=== PATIENT | male | born 1995 | race Caucasian/White ===

== ENCOUNTER 2017-02-23 18:55 | Emergency (ER) | payer MEDICAID, OTHER ==
[2017-02-23 19:02] VITALS: TEMP 98.6
--- NOTE | 2017-02-23 19:28 | EDPHY ---
H & P Stated Complaint: 3 days of neck pain - Personal History Current Tetanus/Diphtheria Vaccine: Yes Current Tetanus Diphtheria and Acellular Pertussis (TDAP): Yes - Medical/Surgical History Hx Asthma: No Hx Chronic Respiratory Disease: No Hx Diabetes: No Hx Cardiac Disease: No Hx Renal Disease: No Hx Cirrhosis: No Hx Alcoholism: No Hx HIV/AIDS: No Hx Splenectomy or Spleen Trauma: No Other PMH: PMH:DENIES. PSH:DENIES - Social History Smoking Status: Never smoked Time Seen by Provider: 02/23/17 19:11 HPI/ROS: CHIEF COMPLAINT: Right anterior neck pain x3 days HISTORY OF PRESENT ILLNESS: 21-year-old male history of hypothyroidism, on chronic thyroid supplementation, complaining of atraumatic right anterior neck pain, reproducible exacerbated with range of motion specifically rotational movements the left. He points to the general location of the sternocleidomastoid muscle. Pain described as feeling deep in the muscle by patient. Denies dysphagia or odynophagia. Denies URI symptoms. Denies adenopathy. No history of major minor head or neck trauma or manipulation. REVIEW OF SYSTEMS: A ten point review of systems was performed and is negative with the exception of the items mentioned in the HPI PAST MEDICAL & SURGICAL HISTORY: Hypothyroid, on supplementation SOCIAL HISTORY:Nonsmoker PHYSICAL EXAM 1) GENERAL: Well-developed, well-nourished, alert and oriented. Appears to be in no acute distress. Answering questions appropriately. 2) HEAD: Normocephalic, atraumatic 3) HEENT: Pupils equal, round, reactive to light bilaterally. Negative Horners. Nasopharynx, oropharynx, clear. No deformity or angulation of nose. No septal hematoma. No rhinorrhea. No oral trauma. Ears bilaterally with normal tympanic membranes. No hemotympanum. No fluid or blood in the external auditory canal. No raccoon eyes. No [place]endo sign. No posterior or pharyngeal irritation, erythema, exudate, tonsillar enlargement. 4) NECK: Tender to palpation right anterior neck approximately sternocleidomastoid location. No crepitus. No fluctuance. No carotid bruit.. 5) LUNGS: Clear to auscultation bilaterally, no wheezes, no rhonchi, no retractions. No obvious signs of trauma. No chest wall pain. No flaring, no grunting. Moving symmetrically. No crepitus. 6) HEART: [Regular rate and rhythm, 7) ABDOMEN: No guarding, no rebound, no focal tenderness, no peritoneal signs, no signs of trauma, no ecchymosis 8) MUSCULOSKELETAL: Moving all extremities, no focal areas of tenderness, no obvious trauma. 9) BACK: No midline vertebral tenderness, no fluctuance, no step-off, no obvious trauma, no visual or palpable abnormality. 10) SKIN: No laceration. No abrasion DIFFERENTIAL DIAGNOSIS: No particular include but limited to acute muscle strain, myositis, abscess (Devaughn,Isaac Janene) Constitutional: Initial Vital Signs Temperature (C) 37 C 02/23/17 19:01 Heart Rate 75 02/23/17 19:01 Respiratory Rate 16 02/23/17 19:01 Blood Pressure 135/70 H 02/23/17 19:01 O2 Sat (%) 98 02/23/17 19:01 O2 Delivery Mode Room Air Allergies/Adverse Reactions: ibuprofen [From Motrin] Allergy (Mild, Verified 12/31/09 16:22) Home Medications: Medication Instructions Recorded LEVOXYL 12/31/09 Hydrocodone/APAP 5/325 [[employer] 1 - 2 tab PO Q4H PRN #20 tab 11/13/15 5/325] Ondansetron HCl [Zofran] 4 mg PO Q4-6PRN PRN #10 tablet 11/13/15 Cyclobenzaprine [Flexeril 10 MG 10 mg PO TID #15 tab 02/23/17 (RX)] Medical Decision Making ED Course/Re-evaluation: The patient was evaluated and managed by the physician's property management assistant. My cosignature indicates that I reviewed the chart and I agree with the findings and plan of care as documented. I am the secondary supervising physician. ( Iris Suarez) 7:29 p.m.: Will check laboratory studies including TSH given his history of hypothyroidism and have recommended CT imaging for evaluation possible deep space infection . Indications risks benefits including but not limited to contrast induced nephropathy, financial cost, radiation exposure, discussed with patient and he consents. 8:28 p.m.: Patient was re-evaluated with serial examinations. Discussed his negative CT imaging results showing no vasculopathy, no abscess, no inflammatory changes of the right anterior neck or sternocleidomastoid muscle. We discussed more than likely acute muscle strain. Recommended against chiropractic manipulation or deep tissue massage. Starting the patient on Flexeril. Discussed his elevated TSH. He has history of hypothyroid, has not adjusted his Synthroid in quite some time, does not have a primary care provider has been refilling his medication. I stressed the importance of controlling his TSH the importance of following up with primary care and with Endocrinology in a provided this referral information. No acute adjustment will be made at this time. (Isaac Cantor) - Data Points Laboratory Results: Laboratory Results 02/23/17 19:31 02/23/17 19:31 02/23/17 02/23/17 02/23/17 19:31 19:31 19:27 WBC 7.83 10^3/uL 10^3/uL (3.80-9.50) RBC 5.44 10^6/uL 10^6/uL (4.40-6.38) Hgb 16.2 g/dL g/dL (13.7-17.5) POC Hgb 16.3 gm/dL gm/dL (13.7-17.5) Hct 46.1 % % (40.0-51.0) POC Hct 48 % % (40-51) MCV 84.7 fL fL (81.5-99.8) MCH 29.8 pg pg (27.9-34.1) MCHC 35.1 g/dL g/dL (32.4-36.7) RDW 12.5 % % (11.5-15.2) Plt Count 252 10^3/uL 10^3/uL (150-400) MPV 9.4 fL fL (8.7-11.7) Neut % (Auto) 53.2 % % (39.3-74.2) Lymph % (Auto) 36.1 % % (15.0-45.0) [place] % (Auto) 7.5 % % (4.5-13.0) Eos % (Auto) 2.3 % % (0.6-7.6) Baso % (Auto) 0.6 % % (0.3-1.7) Nucleat RBC Rel Count 0.0 % % (0.0-0.2) Absolute Neuts (auto) 4.16 10^3/uL 10^3/uL (1.70-6.50) Absolute Lymphs (auto) 2.83 10^3/uL 10^3/uL (1.00-3.00) Absolute Monos (auto) 0.59 10^3/uL 10^3/uL (0.30-0.80) Absolute Eos (auto) 0.18 10^3/uL 10^3/uL (0.03-0.40) Absolute Basos (auto) 0.05 10^3/uL 10^3/uL (0.02-0.10) Absolute Nucleated RBC 0.00 10^3/uL 10^3/uL (0-0.01) Immature Gran % 0.3 % % (0.0-1.1) Immature Gran # 0.02 10^3/uL 10^3/uL (0.00-0.10) POC Sodium 143 mEq/L mEq/L (135-145) Sodium 147 mEq/L H mEq/L (135-145) POC Potassium 3.8 mEq/L mEq/L (3.3-5.0) Potassium 4.2 mEq/L mEq/L (3.5-5.2) POC Chloride 104 mEq/L mEq/L (97-110) Chloride 104 mEq/L mEq/L (97-110) Carbon Dioxide 26 mEq/l mEq/l (22-31) Anion Gap 17 mEq/L H mEq/L (8-16) POC BUN 14 mg/dL mg/dL (7-23) BUN 14 mg/dL mg/dL (7-23) Creatinine 1.2 mg/dL mg/dL (0.7-1.3) POC Creatinine 1.4 mg/dL H mg/dL (0.7-1.3) Estimated GFR > 60 Glucose 84 mg/dL mg/dL (70-100) POC Glucose 85 mg/dL mg/dL (70-100) Calcium 10.7 mg/dL H mg/dL (8.5-10.4) Phosphorus 4.0 mg/dL mg/dL (2.5-4.5) TSH 67.400 uIU/mL H uIU/mL (0.465-4.680) Medications Given: Discontinued Medications Sodium Chloride (Ns) 1,000 mls @ 0 mls/hr IV ONCE ONE PRN Reason: Wide Open Stop: 02/23/17 19:39 Last Admin: 02/23/17 19:49 Dose: 1,000 mls Point of Care Test Results: 02/23/17 19:27 POC Sodium 143 POC Potassium 3.8 POC Chloride 104 POC BUN 14 POC Creatinine 1.4 H POC Glucose 85 Departure - Departure Disposition: Home, Routine, Self-Care Clinical Impression: Elevated TSH, Right neck strain Condition: Good Instructions: Hypothyroidism (ED), Muscle Strain (ED), Cervical Strain (ED) Additional Instructions: Return to the ER immediately if you experience new or worsening neck pain, dizziness, visual disturbance, double vision, lightheadedness, facial droop, or any other symptoms that concern you. Avoid deep tissue massage and chiropractic manipulation, until symptom-free, and cleared by your regular health care provider. Referrals: Eli Law MD [[facility] – [place], [place] Primary Care Provider] - 2-3 days, call for appt. ( Dr. Eli Law is a primary care provider, I recommend you establish primary care) Jessenia Noonan MD [[facility] – [place], [place] Primary Care Provider] - 2-3 days, call for appt. ( Dr. Jessenia Noonan is an health care specialist) Prescriptions: Cyclobenzaprine [Flexeril 10 MG (RX)] 10 mg PO TID #15 tab
[2017-02-23] MEDS ORDERED: NS 1,000 ML IV ONE (19:38)
[2017-02-23 19:39] LABS: PLATELET COUNT 252 10^3/uL (150-400)
[2017-02-23] MEDS ORDERED: IOPAMIDOL (ISOVUE-300) 100 ML BTL ONE (19:54)
[2017-02-23 20:56] VITALS: BP 133/61; PULSE 69; RESP 18; O2SAT 94
== END 2017-02-23 20:56 | disposition home or self-care (01) ==
DX: S16.1XXA Strain of muscle, fascia and tendon at neck level, initial encounter (principal); R94.6 Abnormal results of thyroid function studies; X58.XXXA Exposure to other specified factors, initial encounter
CPT/HCPCS: 82947-QW; Q9967

== ENCOUNTER 2018-04-13 15:32 | Emergency (ER) | payer OTHER | END 2018-04-13 17:09 | disposition home or self-care (01) ==